=== PATIENT | female | born 1970 | race Caucasian/White ===

== ENCOUNTER → 2018-08-22 | Emergency (ER) | payer OTHER ==
[2018-08-22 20:34] VITALS: BP 135/81; PULSE 67; TEMP 98; BMI 22.8
[2018-08-22 21:03] LABS: BASO % 0.4 % (0-2.0); EOS % 4.3 % (0-4.5); HEMATOCRIT 37.2 % (32.4-45.2); HEMOGLOBIN 12.9 GM/dL (10.7-15.3); LYMPH % 35.4 % (8-40); MCH 29.8 pg (25.7-33.7); MCHC 34.8 g/dl (32.0-36.0); MEAN CELL VOLUME 85.6 fl (80-96); MEAN PLT VOLUME 8.8 fl (7.5-11.1); MONO % 10.1 % (3.8-10.2); NEUT % 49.8 % (42.8-82.8); PLATELET COUNT 240 K/MM3 (134-434); RBC 4.34 M/mm3 (3.60-5.2); RDW 12.7 % (11.6-15.6); WHITE BLOOD COUNT 6.3 K/mm3 (4.0-10.0)
[2018-08-22 21:54] LABS: ALK PHOS 153 U/L (45-117); ANION GAP 6 MMOL/L (8-16); BILIRUBIN,TOTAL 0.2 mg/dL (0.2-1); BLOOD UREA NITROGEN 11 mg/dL (7-18); CALCIUM 8.9 mg/dL (8.5-10.1); CHLORIDE 108 mmol/L (98-107); CO2 27 mmol/L (21-32); CREATININE 0.7 mg/dL (0.55-1.3); GLUCOSE,RANDOM 101 mg/dL (74-106); POTASSIUM 3.9 mmol/L (3.5-5.1); SGOT/AST 21 U/L (15-37); SGPT/ALT 24 U/L (13-61); SODIUM 140 mmol/L (136-145); TOT PROT 7.9 g/dl (6.4-8.2)
[2018-08-22 22:18] LABS: URINE APPEARANCE CLEAR; URINE BILIRUBIN NEGATIVE (<2.0 mg/dL); URINE COLOR COLORLESS; URINE GLUCOSE (UA) NEGATIVE (NEGATIVE); URINE KETONE NEGATIVE (NEGATIVE); URINE LEUK ESTERASE NEGATIVE (NEGATIVE); URINE NITRITE NEGATIVE (NEGATIVE); URINE PROTEIN NEGATIVE (NEGATIVE); URINE UROBILINOGEN NEGATIVE mg/dL (0.2-1.0)
--- NOTE | 2018-08-22 22:18 | PDOC ---
History of Present Illness - General Chief Complaint: Blood Sugar Problem Stated Complaint: SICK Time Seen by Provider: 08/22/18 21:07 History Source: Patient Exam Limitations: No Limitations - History of Present Illness Initial Comments: 08/22/18 22:24 Best Contact: PCP:Dr. Grant Pmhx:0 Pshx:2008/ section Allergies:NKDA FH:0 Social Hx: Cigarettes/ 0 Alcohol/ 0 Drugs/0 LMP:07/20/2018 48-year-old female presents to the ER without any medical pain/complaints. Patient states she was informed to take calcium by her PMD but accidentally took 1 g of her 's metformin at approximately 11 AM this morning. Patient denies fever, chills, nausea/vomiting, chest pain, shortness of breath, abdominal pain, lethargy. Patient states she feels fine and has no complaints. Past History - Past Medical History Allergies/Adverse Reactions: Allergies Allergy/AdvReac Type Severity Reaction Status Date / Time No Known Allergies Allergy Verified 08/22/18 20:33 Home Medications: Ambulatory Orders NK [No Known Home Medication] 07/12/14 COPD: No - Suicide/Smoking/Psychosocial Hx Smoking History: Never smoked Have you smoked in the past 12 months: No Information on smoking cessation initiated: No Hx Alcohol Use: No Drug/Substance Use Hx: No Review of Systems - Review of Systems Able to Perform ROS?: Yes Comments:: 08/22/18 22:25 CONSTITUTIONAL: Absent: fever, chills, diaphoresis, generalized weakness, malaise, loss of appetite HEENT: Absent: rhinorrhea, nasal congestion, throat pain, throat swelling, difficulty swallowing, mouth swelling, ear pain, eye pain, visual Changes CARDIOVASCULAR: Absent: chest pain, loss of consciousness, palpitations, irregular heart rate, peripheral edema RESPIRATORY: Absent: cough, shortness of breath, dyspnea with exertion, orthopnea, wheezing, stridor, hemoptysis GASTROINTESTINAL: Absent: abdominal pain, abdominal distension, nausea, vomiting, diarrhea, constipation, melena, hematochezia GENITOURINARY: Absent: dysuria, frequency, urgency, hesitancy, hematuria, flank pain, genital pain MUSCULOSKELETAL: Absent: myalgia, arthralgia, joint swelling SKIN: Absent: rash, itching, pallor HEMATOLOGIC/IMMUNOLOGIC: Absent: easy bleeding, easy bruising, lymphadenopathy, frequent infections ENDOCRINE: Absent: unexplained weight gain, unexplained weight loss, heat intolerance, cold intolerance NEUROLOGIC: Absent: headache, focal weakness or paresthesias, dizziness, unsteady gait, seizure, mental status changes, bladder or bowel incontinence PSYCHIATRIC: Absent: anxiety, depression, suicidal or homicidal ideation, hallucinations. Is the patient limited Kinyarwanda proficient: No *Physical Exam - Vital Signs Last Vital Signs Temp Pulse Resp BP Pulse Ox 98.0 F 67 16 135/81 100 08/22/18 20:31 08/22/18 20:31 08/22/18 20:31 08/22/18 20:31 08/22/18 20:31 - Physical Exam Comments: 08/22/18 22:25 GENERAL: Well developed, well nourished. Awake and alert. No acute distress. HEENT: Normocephalic, atraumatic. PERRLA, EOMI. No conjunctival pallor. Sclera are non- icteric. Moist mucous membranes. Oropharynx is clear. NECK: Supple. Full ROM. No JVD. Carotid pulses 2+ and symmetric, without bruits. No thyromegaly. No lymphadenopathy. CARDIOVASCULAR: Regular rate and rhythm. No murmurs, rubs, or gallops. Distal pulses are 2+ and symmetric. PULMONARY: No evidence of respiratory distress. Lungs clear to auscultation bilaterally. No wheezing, rales or rhonchi. ABDOMINAL: Soft. Non-tender. Non-distended. No rebound or guarding. No organomegaly. Normoactive bowel sounds. MUSCULOSKELETAL Normal range of motion at all joints. No bony deformities or tenderness. No CVA tenderness. EXTREMITIES: No cyanosis. No clubbing. No edema. No calf tenderness. SKIN: Warm and dry. Normal capillary refill. No rashes. No jaundice. NEUROLOGICAL: Alert, awake, appropriate. Cranial nerves 2-12 intact. No deficits to light touch and temperature in face, upper extremities and lower extremities. No motor deficits in the in face, upper extremities and lower extremities. Normoreflexic in the upper and lower extremities. Normal speech. Toes are down- going bilaterally. Gait is normal without ataxia. PSYCHIATRIC: Cooperative. Good eye contact. Appropriate mood and affect. Moderate Sedation - Procedure Monitoring Vital Signs: Procedure Monitoring Vital Signs Temperature 98.0 F 08/22/18 20:31 Pulse Rate 67 08/22/18 20:31 Respiratory Rate 16 08/22/18 20:31 Blood Pressure 135/81 08/22/18 20:31 O2 Sat by Pulse Oximetry (%) 100 08/22/18 20:31 ED Treatment Course - LABORATORY CBC & Chemistry Diagram: 08/22/18 20:35 08/22/18 20:35 - ADDITIONAL ORDERS Additional order review: Laboratory Results 08/22/18 20:35 Sodium 140 Potassium 3.9 Chloride 108 H Carbon Dioxide 27 Anion Gap 6 L BUN 11 Creatinine 0.7 Creat Clearance w eGFR > 60 Random Glucose 101 Calcium 8.9 Total Bilirubin 0.2 AST 21 ALT 24 Alkaline Phosphatase 153 H Total Protein 7.9 Albumin 4.0 08/22/18 20:35 RBC 4.34 MCV 85.6 MCHC 34.8 RDW 12.7 MPV 8.8 Neutrophils % 49.8 Lymphocytes % 35.4 Monocytes % 10.1 Eosinophils % 4.3 Basophils % 0.4 *DC/Admit/Observation/Transfer Diagnosis at time of Disposition: Medication administered in error Qualifiers: Encounter type: initial encounter Injury intent: accidental or unintentional Qualified Code(s): T50.901A - Poisoning by unspecified drugs, medicaments and biological substances, accidental (unintentional), initial encounter - Discharge Dispostion Disposition: HOME Condition at time of disposition: Good Decision to Admit order: No - Referrals Referrals: Shanda Grant [Primary Care Provider] - - Patient Instructions Additional Instructions: Look twice before taking any medication. Follow up with your physician. Return to the ER for any concerns - Post Discharge Activity
[2018-08-22 22:20] LABS: EPI CELLS RARE /HPF (FEW)
== END | disposition home or self-care (01) ==
LOC: JER 20:09
DX: T38.3X1A Poisoning by insulin and oral hypoglycemic [antidiabetic] drugs, accidental (unintentional), initial encounter (principal); Y92.038 Other place in apartment as the place of occurrence of the external cause
CPT/HCPCS: 36415; 80053; 81003; 81015; 84703; 85025; 99283-25

== ENCOUNTER 2022-12-02 11:20 | Emergency (ER) | payer OTHER ==
[2022-12-02 11:25] VITALS: RESP 18; BMI 22.4
[2022-12-02] MEDS ORDERED: MAG HYDROX/AL HYDROX/SIMETH 30 ML UNIT-DOSE CUP PO ONE (12:14)
[2022-12-02] MEDS ORDERED: ACETAMINOPHEN 1000 MG/100 ML BAG IVPB ONE (12:14)
[2022-12-02] MEDS ORDERED: FAMOTIDINE 20 MG/50 ML IVPB 20 MG/50 ML MG IVPB ONE ×2 (12:14→13:13)
[2022-12-02] MEDS ORDERED: SODIUM CHLORIDE 0.9% 500 ML INFUS.BAG IV ONE (12:14)
[2022-12-02] MEDS ORDERED: MAG HYDROX/AL HYDROX/SIMETH 30 ML UNIT-DOSE CUP ONE (13:13)
[2022-12-02] MEDS ORDERED: ACETAMINOPHEN INJECTION 100 ML IVPB ONE (13:13)
[2022-12-02 14:11] LABS: BASO % 0.2 % (0-2.0); EOS % 0.3 % (0-4.5); HEMATOCRIT 37.4 % (32.4-45.2); HEMOGLOBIN 12.8 GM/dL (10.7-15.3); MCH 28.5 pg (25.7-33.7); MCHC 34.1 g/dl (32.0-36.0); MEAN CELL VOLUME 83.4 fl (80-96); MEAN PLT VOLUME 8.8 fl (7.5-11.1); MONO % 4.8 % (3.8-10.2); NEUT % 76.7 % (42.8-82.8); PLATELET COUNT 264 10^3/uL (134-434); RBC 4.49 M/mm3 (3.60-5.2); RDW 13.3 % (11.6-15.6); WHITE BLOOD COUNT 9.1 K/mm3 (4.0-10.0)
[2022-12-02 14:41] LABS: CHLORIDE 106 mmol/L (98-107); SODIUM 130 mmol/L (136-145)
[2022-12-02 14:44] LABS: ALBUMIN 3.7 g/dl (3.4-5.0); CALCIUM 9.2 mg/dL (8.5-10.1); CO2 25 mmol/L (21-32); GLUCOSE,RANDOM 94 mg/dL (74-106)
[2022-12-02 14:47] LABS: CREATININE 0.6 mg/dL (0.55-1.3)
[2022-12-02 14:49] LABS: TOT PROT 8.8 g/dl (6.4-8.2)
[2022-12-02 14:50] LABS: ALK PHOS 121 U/L (45-117)
[2022-12-02 14:58] LABS: ANION GAP -1 MMOL/L (8-16); SGOT/AST 148 U/L (15-37)
[2022-12-02 15:40] VITALS: BP 167/94; PULSE 84; TEMP 97.9
[2022-12-02 15:49] LABS: CALCIUM 8.8 mg/dL (8.5-10.1)
[2022-12-02 15:50] LABS: ALBUMIN 3.5 g/dl (3.4-5.0); BLOOD UREA NITROGEN 10.4 mg/dL (7-18)
[2022-12-02 15:53] LABS: CREATININE 0.4 mg/dL (0.55-1.3)
[2022-12-02 15:54] LABS: BILIRUBIN,TOTAL 0.3 mg/dL (0.2-1); TOT PROT 6.8 g/dl (6.4-8.2)
== END 2022-12-02 16:39 | disposition home or self-care (01) ==
LOC: JER 11:20
PROC: 3E033GC Introduction of Other Therapeutic Substance into Peripheral Vein, Percutaneous Approach (ICD-10-PCS; principal; 2022-12-02)
PROC: 3E033NZ Introduction of Analgesics, Hypnotics, Sedatives into Peripheral Vein, Percutaneous Approach (ICD-10-PCS; 2022-12-02)
DX: R10.13 Epigastric pain (principal); R00.2 Palpitations
CPT/HCPCS: 36415; 71045-TC-FY; 80053; 84484; 85025; 93005; 93010; 99284-25